=== PATIENT | female | born 1950 | race African-American/Black ===

== ENCOUNTER 2017-07-02 07:50 | Day surgery (SDC) | payer OTHER, MEDICAID ==
[~2017-07-02] VITALS: Ht 160 cm; Wt 71.7 kg
[2017-07-02 09:16] LABS: BASOPHILS % 0.5 % (0.0-2.0); EOSINOPHILS % 0.6 % (0.0-5.0); HEMATOCRIT. 36.7 % (36.0-48.0); HEMOGLOBIN. 12.6 g/dL (12.0-16.0); LYMPHOCYTES % 44.6 % (20.0-50.0); MEAN CORPUSCULAR HEMOGLOBIN 30.1 pg (28.0-32.0); MEAN CORPUSCULAR VOLUME 88.1 fL (81.0-99.0); MEAN PLATELET VOLUME 8.1 fl (7.4-10.4); MONOCYTES % 10.4 % (2.0-8.0); NEUTROPHILS % 43.9 % (40.0-76.0); PLATELET 224 x1000/uL (130-400); RED BLOOD CELL COUNT 4.17 mill/uL (4.2-5.4); RED CELL DISTRIBUTION WIDTH 12.9 % (11.6-14.6)
[2017-07-02] MEDS ORDERED: LACTATED RINGERS 1,000 ML IV SCH (09:20)
[2017-07-02 09:26] LABS: CARBON DIOXIDE 28 mEq/L (21-32); CHLORIDE 105 mEq/L (98-107)
[2017-07-02] MEDS ORDERED: XALAO LEFTEYE (09:45)
[2017-07-02] MEDS ORDERED: SODI15DR6 OP (09:45)
[2017-07-02] MEDS ORDERED: SIMV20TA6 PO (09:45)
[2017-07-02] MEDS ORDERED: [UNRECOGNIZED DRUG - OTHER] PO (09:45)
[2017-07-02] MEDS ORDERED: IBUP-2028 PO (09:45)
[2017-07-02] MEDS ORDERED: FENTANYL CITRATE/PF 50MCG/ML 2ML VIAL ONE (12:29)
[2017-07-02] MEDS ORDERED: KETOROLAC 30MG/ML VIAL IV NR (12:30)
[2017-07-02] MEDS ORDERED: HYDROMORPHONE HCL/PF 2MG/ML CPJ IV PRN (12:45)
[2017-07-02] MEDS: FENTANYL CITRATE/PF 50MCG/ML 2ML VIAL IV PRN ×4 (12:59→13:20)
[2017-07-02 13:29] VITALS: BP 146/84
== END 2017-07-02 14:00 | disposition home or self-care (01) ==
LOC: OR 07:50
PROVIDERS: ATTEND Orthopaedic Surgery
DX: M25.661 Stiffness of right knee, not elsewhere classified (principal); M19.90 Unspecified osteoarthritis, unspecified site; G62.89 Other specified polyneuropathies; K21.9 Gastro-esophageal reflux disease without esophagitis; Z87.891 Personal history of nicotine dependence; H40.89 Other specified glaucoma; Z91.018 Allergy to other foods; Z91.011 Allergy to milk products; Z88.5 Allergy status to narcotic agent; Z79.899 Other long term (current) drug therapy
CPT/HCPCS: 27570; 36415; 80048; 85025; 97116; 97161; C1893; J1885; J3010; J7120